=== PATIENT | female | born 1995 ===

== ENCOUNTER 2024-10-27 14:30 | Outpatient (AMB) | payer OTHER, SELFPAY ==
--- NOTE | 2024-10-27 14:33 | MHC.PC.OV ---
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 bad hair lost. 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: No Accompanied by: Self / Same As Patient Allergies No Known Allergies Allergy (Verified 10/27/24 14:33) Tobacco use date assessed: 10/27/24 Dental Screening Dental Screen Date: 10/27/24 Did you have a dental visit in the last 12 months?: Yes Did you have a dental problem in the last 6 months where you did not have access to dental care?: No Was dental information given to patient?: Patient has dentist HPI HPI Comments History of Present Illness Details History of Present Illness The patient is a 28-year-old female presenting with a wellness check-up and concerns regarding right ankle stiffness and pain, hair loss, and menstrual pain. Right ankle stiffness and pain: - Reports stiffness and pain in the right ankle, particularly in the morning, with a pain level of 3-4 out of 10. - Symptoms began approximately one month ago, with no history of trauma or injury to the ankle. - Had ACL reconstruction on the right knee a year ago, but the knee is not currently symptomatic. - Engages in rock climbing, lifting, and mobility exercises regularly. Hair loss: - Reports significant hair loss over the past year, with no prior blood work conducted in six years. - Suspects a possible vitamin deficiency due to limited red meat intake, relying on spinach for iron. Menstrual pain and suspected ovarian cysts: - Experiences severe menstrual pain, including pelvic pain and dyspareunia, with symptoms varying in location and timing. - Suspects ovarian cysts but has not pursued evaluation due to the intermittent nature of symptoms. Health Maintenance - Referral for gynecological evaluation and Pap smear - Blood tests including CBC, kidney and liver function, electrolytes, hemoglobin A1c, thyroid function, vitamin D, hepatitis B and C, HIV, and STI screening Review of Systems - Musculoskeletal: Reports right ankle stiffness and pain, denies other joint pain - Dermatological: Reports significant hair loss over the past year - Reproductive: Reports severe menstrual pain and dyspareunia, denies heavy bleeding outside of menstruation 10-point ROS reviewed and negative except as noted in HPI Medication History - Ibuprofen 600 mg as needed for pain, not previously used by the patient Past Surgical History - ACL reconstruction on the right knee one year ago Family History - Denies family history of arthritis or cancer Social History - 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 We also talked about the importance of a gynecological evaluation and Pap smear, given her age and lack of previous screenings. I recommended a series of blood tests to assess for potential deficiencies or underlying conditions contributing to her hair loss and menstrual pain. We agreed on a follow-up in two weeks to review the results and adjust the management plan as needed. Plan 1. Right Ankle Stiffness And Pain - Referral to physical therapy and prescription of ibuprofen 600 mg as needed for pain management. 2. Hair Loss - Comprehensive blood work to assess for vitamin and mineral deficiencies, focusing on iron levels due to dietary habits. 3. Menstrual Pain And Suspected Ovarian Cysts - Keeping a symptom diary to track pain in relation to menstrual cycle and ovulation, and use of ibuprofen for pain management. Patient Instructions - Follow up with physical therapy for ankle stiffness and pain. - Take ibuprofen 600 mg as needed for pain, with food. - Keep a diary of menstrual and pelvic pain, noting timing and severity. - Complete blood tests as ordered and follow up in two weeks for results. [facility] Family History (Updated 10/27/24 @ 14:39 by Jenny Harmon MA) Father No problems noted. Mother High blood pressure Social History (Updated 10/27/24 @ 14:40 by Jenny Harmon MA) Housing: Apartment Alcohol intake: current Alcohol intake frequency: holidays/special occasions only Patient Tobacco Use Status: Never used Tobacco service: No Current occupational status: employed Cognitive needs: No Hearing needs: No Vision needs: No Questionnaire PHQ-9 Over the last 2 weeks, how often have you been bothered by any of the following problems? 1. Little interest or pleasure in doing things: several days 2. Feeling down, depressed, or hopeless: several days 3. Trouble falling or staying asleep, or sleeping too much: not at all 4. Feeling tired or having little energy: more than half the days 5. Poor appetite or overeating: not at all 6. Feeling bad about yourself - or that you are a failure or have let yourself or your family down: not at all 7. Trouble concentrating on things, such as reading the newspaper or watching television: several days 8. Moving or speaking so slowly that other people could have noticed. Or the opposite - being so fidgety or restless that you have been moving around a lot more than usual: not at all 9. Thoughts that you would be better off or of hurting yourself in some way: not at all Total score: 5 Source: Developed by Drs. Titus Cordoba, Neha Doss, Abraham Medrano and colleagues, with an educational tyler from [employer]. Thrive Questionnaire Date Thrive assessed: 10/27/24 I am a: Patient What is your living situation today?: I choose not to answer this question Within the past 12 months, did the food you bought not last and you didn't have the money to get more?: I choose not to answer this question Within the past 12 months, did you worry whether your food would run out before you got money to buy more?: I choose not to answer this question Do you have trouble paying for medicines?: I choose not to answer this question Do you have trouble getting transportation to medical appointments?: I choose not to answer this question Do you have trouble paying your heating and electricity bill?: I choose not to answer this question Do you have trouble taking care of your child, family member or friend?: I choose not to answer this question Do you have trouble with day-to-day activities such as bathing, preparing meals, shopping, managing finances, etc.?: I choose not to answer this question Are you currently unemployed and looking for a job?: I choose not to answer this question Are you interested in more education?: I choose not to answer this question Please select the resources that you would like help with: None Currently or been in a relationship where the following occur: No concerns reported THRIVE Score: 0 AUDIT C Alcohol Use Questionnaire (AUDIT-C) 1. How often do you have a drink containing alcohol?: Monthly or less 2. How many drinks containing alcohol do you have on a typical day when you are drinking?: 1 or 2 3. How often do you have six or more drinks on one occasion?: Never Total Score: 1 CEDRIC-7 AMB Questionnaire CEDRIC-7 Date CEDRIC - 7 assessed: 10/27/24 Feeling nervous, anxious, or on edge: 0 = Not at all Not being able to stop or control worryin = Not at all Worrying too much about different things: 0 = Not at all Trouble relaxin = Several days Being so restless that it is hard to sit still: 0 = Not at all Becoming easily annoyed or irritable: 0 = Not at all Feeling afraid as if something awful might happen: 0 = Not at all Total CEDRIC-7 score (0-4 normal; 5-9 mild; 10-14 moderate; 15-21 severe): 1 Source: Developed by Drs. Titus Cordoba, Neha Doss, Abraham Medrano and colleagues, with an educational tyler from [employer]. Physical exam (Primary Care) Vital Signs: Last Vital Signs Temp 98.1 F 10/27/24 14:41 Pulse 72 10/27/24 14:41 Resp 16 10/27/24 14:41 BP 120/70 10/27/24 14:41 Pulse Ox 99 10/27/24 14:41 Oxygen Delivery Method Room Air 10/27/24 14:41 BMI result Body Mass Index 26.7 Tobacco/Smoking Status: Tobacco use Status Tobacco use date assessed 10/27/24 10/27/24 14:46 Patient Tobacco Use Status Never used Tobacco 10/27/24 14:46 PHQ-9: PHQ-9 Score PHQ-9: Total score 5 10/27/24 14:35 Thrive Assessment: Date of Thrive Assessment Date Thrive assessed 10/27/24 10/27/24 14:46 Currently or been in a relationship where the following occur: No concerns reported Coding Level of Care Code New Pt Level 3 (41927) Diagnoses Establishing care with new doctor, encounter for Z76.89 Encounter for screening, unspecified Z13.9 Acute right ankle pain M25.571 Chronicity: acute Laterality: right Hair loss L65.9 Menstrual pain N94.6 Counseling, unspecified Z71.9 Routine screening for STI (sexually transmitted infection) Z11.3 Screening for HIV (human immunodeficiency virus) Z11.4 Screening for depression Z13.31 Screening for diabetes mellitus Z13.1 Screening for lipoid disorders Z13.220 Assessment & Plan Assessment & Plan (1) Establishing care with new doctor, encounter for: Code(s): Z76.89 - Persons encountering health services in other specified circumstances (2) Encounter for screening, unspecified: Code(s): Z13.9 - Encounter for screening, unspecified (3) Ankle pain: Code(s): M25.579 - Pain in unspecified ankle and joints of unspecified foot Qualifiers: Chronicity: acute Laterality: right Qualified Code(s): M25.571 - Pain in right ankle and joints of right foot (4) Hair loss: Code(s): L65.9 - Nonscarring hair loss, unspecified (5) Menstrual pain: Code(s): N94.6 - Dysmenorrhea, unspecified (6) Counseling, unspecified: Code(s): Z71.9 - Counseling, unspecified (7) Routine screening for STI (sexually transmitted infection): Code(s): Z11.3 - Encounter for screening for infections with a predominantly sexual mode of transmission (8) Screening for HIV (human immunodeficiency virus): Code(s): Z11.4 - Encounter for screening for human immunodeficiency virus [HIV] (9) Screening for depression: Code(s): Z13.31 - Encounter for screening for depression (10) Screening for diabetes mellitus: Code(s): Z13.1 - Encounter for screening for diabetes mellitus (11) Screening for lipoid disorders: Code(s): Z13.220 - Encounter for screening for lipoid disorders Plan Orders: Orders Chlamydia Species Ab Panel Today Z13.9 - Encounter for screening, unspecified, Z76.89 - Persons encountering health services in other specified circumstances Hepatitis B Surface Antigen Today Z13.9 - Encounter for screening, unspecified, Z76.89 - Persons encountering health services in other specified circumstances Hepatitis C Antibody Today Z13.9 - Encounter for screening, unspecified, Z76.89 - Persons encountering health services in other specified circumstances Lipid Panel Today Z13.9 - Encounter for screening, unspecified, Z76.89 - Persons encountering health services in other specified circumstances Magnesium Today Z13.9 - Encounter for screening, unspecified, Z76.89 - Persons encountering health services in other specified circumstances Vitamin D 1,25 dihydroxy Today Z13.9 - Encounter for screening, unspecified, Z76.89 - Persons encountering health services in other specified circumstances Ferritin Today D50.9 - Iron deficiency anemia, unspecified, Z13.9 - Encounter for screening, unspecified, Z76.89 - Persons encountering health services in other specified circumstances IRON PROFILE Today D50.9 - Iron deficiency anemia, unspecified, Z13.9 - Encounter for screening, unspecified, Z76.89 - Persons encountering health services in other specified circumstances PT Evaluation and Treatment Today M25.571 - Pain in right ankle and joints of right foot, M25.579 - Pain in unspecified ankle and joints of unspecified foot Complete Blood Count Auto Diff Today Z13.9 - Encounter for screening, unspecified, Z76.89 - Persons encountering health services in other specified circumstances Comprehensive Met. Panel Today Z13.9 - Encounter for screening, unspecified, Z76.89 - Persons encountering health services in other specified circumstances CT NG by PCR Urine Today Z13.9 - Encounter for screening, unspecified, Z76.89 - Persons encountering health services in other specified circumstances Hemoglobin A1c Today Z13.9 - Encounter for screening, unspecified, Z76.89 - Persons encountering health services in other specified circumstances Hepatitis B Surface Antibody Today Z13.9 - Encounter for screening, unspecified, Z76.89 - Persons encountering health services in other specified circumstances HIV Ab/Ag Today Z13.9 - Encounter for screening, unspecified, Z76.89 - Persons encountering health services in other specified circumstances Syphilis Screen Today Z13.9 - Encounter for screening, unspecified, Z76.89 - Persons encountering health services in other specified circumstances TSH reflex Free T4 Today Z13.9 - Encounter for screening, unspecified, Z76.89 - Persons encountering health services in other specified circumstances UA CC w/rflx Micro + Cult Today Z13.9 - Encounter for screening, unspecified, Z76.89 - Persons encountering health services in other specified circumstances Vitamin B12 and Folate Today Z13.9 - Encounter for screening, unspecified, Z76.89 - Persons encountering health services in other specified circumstances Zinc Today Z13.9 - Encounter for screening, unspecified, Z76.89 - Persons encountering health services in other specified circumstances Transferrin Today D50.9 - Iron deficiency anemia, unspecified, Z13.9 - Encounter for screening, unspecified, Z76.89 - Persons encountering health services in other specified circumstances Medications: New ibuprofen 600 mg PO Q8H PRN 30 tabs 0RF pain
[2024-10-27 14:41] VITALS: BP 120/70; PULSE 72; RESP 16; TEMP 36.7; O2SAT 99; BMI 26.7
--- OUTSIDE RECORDS SUMMARY | 2024-10-27 18:15 | XMS_ITS | Clinical Summary ---
Author Organization [employer] Address [address] [place] [address] Care Team Providers Care Associate Agent Insurance Sales Name Role Phone Unavailable Primary Care Provider Unavailabl e Encounters Date Type Department Care Team Description 09/01/2024 Population Health Risk Score [facility] (C3) Department [address] [address] Provider, Population Health Generic from Last 3 Months Social History Tobacco Use Types Packs/Day Years Used Date Smoking Tobacco: Never Assessed Comments Unknown Sex and Gender Information Value Date Recorded Sex Assigned at Not on file Legal Sex Female 9:28 PM EDT Gender Identity Not on file Sexual Orientation Not on file Plan of Treatment Health Maintenance Due Date Last Done Comments Depression Screening 1996 HIV Screening 1996 SDOH Screening 1996 Disability Screening 1996 Alcohol/Substance Use Screening 2008 Tobacco Screening 2008 Family Planning (PISQ) 12/18/2011 HPV Vaccines (1 - 3-dose series) 12/18/2011 Hepatitis C Screening 2014 DTaP/Tdap/Td Vaccines (1 - Tdap) 12/18/2015 Hepatitis B Vaccines (1 of 3 - 19+ 3-dose series) 12/18/2015 Pap Smear 2017 COVID-19 Vaccine (1 - 2023-2 5 season) 2024 Influenza Vaccine (#1) 2024 Zoster Vaccines (1 of 2) 2046 RSV Patients and Pa tients Aged 60 years or older (1 - 1-dose 75+ series) 12/18/2071 HIB Vaccines Aged Out No longer eligi ble based on patient's age to complete this topic Hepatitis A Vaccines Aged Out No long er eligible based on patient's age to complete this topic IPV Vaccines Aged Out No longer eligi ble based on patient's age to complete this topic Meningococcal B Vaccine Aged Out No l onger eligible based on patient's age to complete this topic Meningococcal Vaccine Aged Out No mitch renu eligible based on patient's age to complete this topic Pneumococcal Vaccine: Pediat rics (0 to 5 Years) and At-Risk Patients (6 to 49) Years Aged Out No longer eligible b ased on patient's age to complete this topic RSV under 20 months Aged Out No longe r eligible based on patient's age to complete this topic Rotavirus Vaccines Aged Out No longer eligible based on patient's age to complete this topic
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
== END 2024-10-27 15:22 | disposition home or self-care (01) ==
LOC: HO.HMCFMS 14:31
PROVIDERS: PCP Student in an Organized Health Care Education/Training Program; Visit Provider Student in an Organized Health Care Education/Training Program
DX: M25.571 Pain in right ankle and joints of right foot (principal); L65.9 Nonscarring hair loss, unspecified; N94.6 Dysmenorrhea, unspecified; Z71.9 Counseling, unspecified; Z11.3 Encounter for screening for infections with a predominantly sexual mode of transmission; Z11.4 Encounter for screening for human immunodeficiency virus [HIV]; Z13.31 Encounter for screening for depression; Z13.1 Encounter for screening for diabetes mellitus; Z13.220 Encounter for screening for lipoid disorders

== ENCOUNTER → 2024-10-27 14:30 | Outpatient (BNVA) | payer OTHER, SELFPAY | PROVIDERS: PCP Student in an Organized Health Care Education/Training Program; Visit Provider Student in an Organized Health Care Education/Training Program | DX: Z76.89 Persons encountering health services in other specified circumstances (principal); M25.571 Pain in right ankle and joints of right foot; L65.9 Nonscarring hair loss, unspecified; N94.6 Dysmenorrhea, unspecified; Z71.9 Counseling, unspecified; Z13.39 Encounter for screening examination for other mental health and behavioral disorders; Z13.30 Encounter for screening examination for mental health and behavioral disorders, unspecified | CPT/HCPCS: 99202 ==

== ENCOUNTER 2024-11-04 13:08 | Outpatient (REF) | payer OTHER, SELFPAY ==
[2024-11-04 14:51] LABS: Total Hemoglobin (HGBA1C) 3630.7223 umol/L
[2024-11-04 15:09] LABS: Alanine Aminotransferase 33 U/L (0-31); Albumin Level 4.9 g/dL (3.5-5.0); Alkaline Phosphatase 75 U/L (39-117); Anion Gap 11 (12-20); Aspartate Amino Transferase 21 U/L (5-31); Blood Urea Nitrogen 12 mg/dL (9-16); Calcium 9.4 mg/dL (8.4-10.2); Carbon Dioxide 27 mmol/L (22-29); Chloride 107 mmol/L (96-108); Cholesterol 184 mg/dL (<200); Estimated Glomerular Filt Rate > 60; Ferritin 27 ng/mL (10-122); HDL Cholesterol 55 mg/dL (>40); Iron 80 mcg/dL (30-160); Magnesium 2.2 mg/dL (1.6-2.6); Percent Iron Saturation 25 % (15-50); Potassium 3.8 mmol/L (3.3-5.1); Sodium 141 mmol/L (135-145); Total Iron Binding Capacity 318 mcg/dL (228-428); Total Protein 7.9 g/dL (6.5-8.0); Triglycerides 41 mg/dL (<150); Unsaturated Iron Binding 238 ug/dL
[2024-11-04 15:26] LABS: Folate 12.6 ng/mL (> or = 4.0); Vitamin B12 808 pg/mL (200-900)
--- OUTSIDE RECORDS SUMMARY | 2024-11-04 15:32 | XMS_ITS | Clinical Summary ---
Author Organization [facility] Address [address] [place] [address] Care Team Providers Care Public Safety Director Name Role Phone Radha Muhammad [facility] Primary Care Provider [phone] Source Comments PLEASE NOTE, if this patient [...] does not warrant SVE prophylaxis. EKG- 07/16/2012- [place] .16 QTc .42. Possible that anemia can exacerbating factor for murmur. Exercise-induced asthma ([facility]) 04/08/2018 Immunizations Immunization Administration Dates Next Due DTaP-Hep B-IPV (Pediarix) 04/07/2001,11/1998,06/14/1997,04/19,02/22/1997 HEP B, PED/ADOL ([id number]-[id number]/RECOMBIVAX-PEDS) 11/05/1997,01/18/1997,1996 Hib (PRP-T) 06/20/1998, 8,04/19/1997,02/22 IPV (IPOL) [...] Screen 02/12/2024 04/08/2018 Depression Annual Screen 02/12/2024 [id number] ( season) 2024 Imm-Influenza (#1) 2024 Imm-Hepatitis [...] & HIV-2 ANTIBODIES (04/08/2018 4:24 PM EST) [facility] HIV 1 AND 2 ANTIBODY SCREEN NEGATIVE NEGATIVE [facility] [employer] [facility] Comment: This assay is a 4th generation [...] PM EST 04/08/2018 8:10 PM EST Narrative [employer] - 04/08/2018 10:07 PM EST [employer], [place] [address] Project Administrator - Oneyda Osuna MD PT ID [id number] ORD# [id number] Doris Parra PA-C LAB - BLOOD DRAW Final Re sult Performing Organization Address City/State/[facility] Co [place] [address], from Last 3 Months or Most Recently Relevant to Health Maintenance Insurance [employer] Care Teams Public Safety Director Relationship Specialty Start Date End Date Radha Muhammad FNP [facility] [place] [address] PCP - General Family Medicine, PANTRY COOK 10/02/18
--- OUTSIDE RECORDS SUMMARY | 2024-11-04 15:32 | XMS_ITS | Clinical Summary ---
Author Organization [employer] Address [address] [facility] 7t [place] [address] Care Team Providers Care Aircraft Captain Name Role Phone Unavailable Primary Care Provider Unavailabl e Encounters Date Type Department Care Team Description 09/01/2024 Population Health Risk Score [facility] (C3) Department [address] [address] Provider, Population Health Generic from [...]
[2024-11-04 19:27] LABS: MANUAL DIFF FLAG NO
[2024-11-04 19:29] LABS: Hematocrit 42.2 % (37.0-47.0); Hemoglobin 13.8 g/dl (12.0-16.0); Imm Gran Abs Auto 0.01 X10*3/uL (0.00-0.03); Imm Gran Pct Auto 0.2 % (0.0-0.4); Lymphocytes Absolute Auto 1.7 X10*3/uL (1.2-4.9); Mean Corpuscular HGB Conc 32.7 g/dl (31.0-35.0); Mean Corpuscular Hemoglobin 29.6 pg (27.0-33.0); Mean Corpuscular Volume 90.4 fL (80.0-98.0); NRBC Abs Auto 0.000 X10*3/uL (0.0-0.012); NRBC Pct Auto 0.0 /100WBC (0.0-0.2); Platelet Count 368 X10*3/uL (160-400); Red Blood Count 4.67 X10*6/uL (4.20-5.50); White Blood Count 5.2 X10*3/uL (4.8-10.8)
[2024-11-05 03:53] LABS: Syphilis Screen Nonreactive (Nonreactive)
[2024-11-05 04:03] LABS: HBS Num1 1.03 mIU/mL (0-7.99); HBsAGNum1 0.37 S/CO (0.00-0.99); HIV Num 1 0.06 S/CO (0.00-0.99); Hepatitis B Surface Antigen Negative (Negative); ~HepC Num1 0.07 S/CO (0.00-0.79); ~Hepatitis B Surface Antibody NONREACTIVE (Nonreactive); ~Hepatitis C Antibody Nonreactive (Nonreactive)
[2024-11-05 09:17] LABS: Transferrin 291 mg/dL (188-341)
[2024-11-09 17:33] LABS: VITAMIN D (1,25 OH) D3 60 pg/mL; Vit D (1,25-Dihydroxy) Total 60 pg/mL (18-72); Vitamin D (1,25 OH) D2 <8 pg/mL
[2024-11-11 11:23] LABS: Chlamydia Trachomatis IgA <1:16 titer (<1:16)
== END 2024-11-04 13:09 | disposition home or self-care (01) ==
LOC: HO.LAB 13:08
PROVIDERS: PCP Student in an Organized Health Care Education/Training Program; Visit Provider Student in an Organized Health Care Education/Training Program
DX: Z76.89 Persons encountering health services in other specified circumstances (principal); Z11.4 Encounter for screening for human immunodeficiency virus [HIV]; Z11.59 Encounter for screening for other viral diseases; Z01.84 Encounter for antibody response examination; D50.9 Iron deficiency anemia, unspecified
CPT/HCPCS: 36415; 80053; 80061; 82607; 82652; 82728; 82746; 83036; 83540; 83735; 84443; 84466; 84630; 85025; 86631; 86632; 86706; 86780; 86803; 87340; 87389

== ENCOUNTER 2024-11-05 11:06 | Outpatient (REF) | payer OTHER, SELFPAY ==
[2024-11-06 11:46] LABS: Appearance Urine Turbid; Glucose Urine UA Negative (Negative); PH 6.0 (5.0-9.0); Specific Gravity - Urine >= 1.030 (1.005-1.025)
--- OUTSIDE RECORDS SUMMARY | 2024-11-06 12:52 | XMS_ITS | Clinical Summary ---
Author Organization [facility] Address [address] [place] [address] Care Team Providers Care Renewal Specialist Name Role Phone Radha Muhammad [facility] Primary Care Provider [phone] Source Comments PLEASE NOTE, if this patient [...] does not warrant SVE prophylaxis. EKG- 07/16/2012- [place] .16 QTc .42. Possible that anemia can exacerbating factor for murmur. Exercise-induced asthma ([facility]-H[facility]) 04/08/2018 Immunizations Immunization Administration Dates Next Due DTaP-Hep B-IPV (Pediarix) 04/07/2001,11/1998,06/14/1997,04/19,02/22/1997 HEP B, PED/ADOL ([id number]/RECOMBIVAX-PEDS) 11/05/1997,01/18/1997,1996 Hib (PRP-T) 06/20/1998, 8,04/19/1997,02/22 IPV (IPOL) [...] Screen 02/12/2024 04/08/2018 Depression Annual Screen 02/12/2024 [id number] ( season) 2024 Imm-Influenza (#1) 2024 Imm-Hepatitis [...] & HIV-2 ANTIBODIES (04/08/2018 4:24 PM EST) [facility] HIV 1 AND 2 ANTIBODY SCREEN NEGATIVE NEGATIVE [facility] [employer] [facility] Comment: This assay is a 4th [...] PM EST 04/08/2018 8:10 PM EST Narrative [employer] - 04/08/2018 10:07 PM EST [employer], [place] [address] Engineering Faculty - Oneyda Osuna MD PT ID [id number] ORD# [id number] Doris Parra PA-C LAB - BLOOD DRAW Final Re sult Performing Organization Address City/State/[facility] [place] [address], from Last 3 Months or Most Recently Relevant to Health Maintenance Insurance [employer] Care Teams Renewal Specialist Relationship Specialty Start Date End Date Radha Muhammad FNP [facility] [place] [address] PCP - General Family Medicine, NEWS PRODUCTION SUPERVISOR 10/02/18
--- OUTSIDE RECORDS SUMMARY | 2024-11-06 12:52 | XMS_ITS | Clinical Summary ---
Author Organization [email or web address] Address [address] [facility] 7t [place] [address] Care Team Providers Care Mechanical Handyman Name Role Phone Unavailable Primary Care Provider Unavailabl e Encounters Date Type Department Care Team Description 09/01/2024 Population Health Risk Score [facility] (C3) Department [address] [address] Provider, Population Health Generic from [...]
[2024-11-06 13:53] LABS: CT PCR Urine NOT DETECTED (Not Detect.); NG PCR Urine NOT DETECTED (Not Detect.)
== END 2024-11-05 11:07 | disposition home or self-care (01) ==
LOC: HO.LNP 11:06
PROVIDERS: Visit Provider Student in an Organized Health Care Education/Training Program
DX: Z13.9 Encounter for screening, unspecified (principal); Z76.89 Persons encountering health services in other specified circumstances; Z20.2 Contact with and (suspected) exposure to infections with a predominantly sexual mode of transmission
CPT/HCPCS: 81003; 87491; 87591

== ENCOUNTER 2024-11-10 08:27 | Outpatient (REF) | payer OTHER, SELFPAY | END 2024-11-10 08:28 | disposition home or self-care (01) | LOC: HO.LNP 08:27 | PROVIDERS: Visit Provider Student in an Organized Health Care Education/Training Program | DX: Z12.4 Encounter for screening for malignant neoplasm of cervix (principal); Z71.2 Person consulting for explanation of examination or test findings; R74.01 Elevation of levels of liver transaminase levels; E78.5 Hyperlipidemia, unspecified; L65.9 Nonscarring hair loss, unspecified; R10.2 Pelvic and perineal pain; G89.29 Other chronic pain | CPT/HCPCS: 88175; 99212 ==

== ENCOUNTER 2024-11-27 08:59 | Outpatient (AMB) | payer OTHER, SELFPAY ==
--- NOTE | 2024-11-27 09:01 | A.OFFPC_ITS ---
Vital Signs 11/27/24 09:02 Height 5 ft 1.81 in Weight 143 lb 8 oz BMI 26.4 BP 124/85 Blood Pressure Location Lt brachial Position Sitting Respiration 16 Pulse 79 Pulse Source Pulse Oximeter Temp 97.3 F Temp Source Oral Pulse Oximetry (%) 99 Oxygen Delivery Method Room Air Intake Visit Reasons: pap f/u Intake Note: establish care ( physical) had acl surgery has being having some pain on the ankle and foot every morning. bad hair lost. Solution Professional Required: No Accompanied by: Self / Same As Patient Allergies No Known Allergies Allergy (Verified 11/27/24 09:02) Tobacco use date assessed: 11/27/24 Dental Screening Dental Screen Date: 11/27/24 Did you have a dental visit in the last 12 months?: Yes Did you have a dental problem in the last 6 months where you did not have access to dental care?: No Was dental information given to patient?: Patient has dentist HPI HPI Comments History of Present Illness Details Consent Patient was informed and verbally consented to the use of an ambient scribe for clinic note documentation during this visit. History of Present Illness The patient is a 28-year-old female presenting for follow-up on Pap smear results and discussion of low ferritin levels associated with hair loss. Unsatisfactory Pap Smear: The patient had a Pap smear on November 10, 2024, which was deemed unsatisfactory due to insufficient squamous epithelial cells. The patient expressed concern about the delay before the next test but was reassured that this follows guidelines. The patient preferred an earlier repeat within the guideline window for peace of mind. Low Ferritin Level: The patient is experiencing hair loss and suspects it could be related to her low ferritin levels. Recent labs showed ferritin at the lower end of the normal range, The patient wishes to address this as she feels dietary intake might be a contributing factor. Medications: - None were discussed during this visit. Social History: - Reports not consuming much meat due to dislike of cooking it, which may affect iron levels despite no specific dietary restrictions. Diagnostic Results: - Labs: ALT level at 33 U/L (reference c utoff 31 U/L) - Labs: LDL cholesterol at 21 mg/dL (ref erence cutoff 100 mg/dL) - Labs: Ferritin at 27 ng/mL (lower end of normal range) - Tests: Pap smear unsatisfactory due to insufficient squamous epithelial cells Review of Systems - Hematological: Reports hair loss possi milan related to ferritin levels - Reproductive: Reports concerns about P ap smear results 10-point ROS reviewed and negative excep t as noted in HPI Past Medical History Health Maintenance - Cervical cancer screening: Pap smear p erformed, repeat recommended due to unsatisfactory result Physical Exam General: Well-appearing, in no acute distress. Vital signs: Within normal limits. HEENT: Normocephalic, atraumatic. PERRLA, EOMI. Conjunctiva clear, sclera anicteric. Oropharynx clear, mucous membranes moist. TMs intact bilaterally. Neck: Supple, no lymphadenopathy, no thyromegaly, no JVD or carotid bruits. Cardiovascular: RRR, normal S1/S2, no murmurs, rubs, or gallops. Peripheral pulses 2+ and symmetric. No edema. Respiratory: Lungs clear to auscultation bilaterally, no wheezes, rales, or rhonchi. Normal effort. Abdomen: Soft, non-tender, non-distended. Normoactive bowel sounds. No hepa tosplenomegaly, no masses. MSK: Full range of motion, no joint swelling or deformity. Normal gait. Skin: Warm, dry, intact. No rashes, lesions, or pallor. Neuro: Alert and oriented x3. Cranial nerves II-XII intact. Strength 5/5 throughout. Sensation intact. Reflexes 2+ symmetric. Normal coordination and gait. Psych: Appropriate mood and affect. Normal judgment and insight. Plan 1. Mildly Elevated Alanine Aminotransfer ase (Alt) - Monitor ALT levels and assess for pote ntial liver function abnormalities. 2. elevated LDL - LDL 121 elevated at this time discuss lifestyle modifications and referral to registered dietitian 3. Unsatisfactory Pap Smear - Repeat Pap smear in 2 to 4 months as d iscussed, with initial repeat preferred in early January. 4. Low Ferritin Level - Start iron supplements 325 mg daily al gladis with vitamin C for better absorption. Re-evaluate ferritin levels in 3 months. Discussion Notes I discussed with the patient the unsatisfactory result of her recent Pap smear, explaining the need for a repeat test within 2 to 4 months. We decided on early January for the repeat test for the patient's peace of mind. I also addressed the patient's concern about hair loss, associating it with her low ferritin levels. I recommended starting iron supplements to increase ferritin levels, which are suspected to contribute to her symptoms, and advised taking it with vitamin C to enhance absorption. The follow-up on ferritin levels will occur in 3 months. Patient Instructions - Repeat Pap smear in early January to obtain an adequate sample. - Start taking iron 325 mg daily with vi tamin C to improve absorption. - Take iron supplements one hour before or two hours after meals. - Avoid taking iron with caffeine. - Schedule a follow-up appointment in 3 months to reassess ferritin levels. - Contact the office if any concerns or unexpected symptoms arise. Medical Decision Making During today's consultation, I addressed the patient's need to repeat her Pap smear due to unsatisfactory results stemming from a lack of sufficient squamous epithelial cells and explained the importance of this follow-up in line with clinical guidelines. In addition, the patient presented concerns about hair loss which may be correlated with her reported low ferrous levels. Given her dietary habits and the objective lab findings of marginally low ferritin, I determined that iron supplementation could optimize her ferritin to more favorable levels for hair health, with planned monitoring of improvements. The rationale for the recommended follow-up, diagnostic testing, and nutritional guidance was explained to ensure the patient understood the expected outcomes and management goals. Total time spent caring for the patient today was 30 minutes. This includes time spent before the visit reviewing the chart, time spent documenting, and time spent reviewing laboratory results, diagnostic imaging, medications, performing a medically necessary evaluation, counseling on diagnoses, care coordination. [facility] Medical History (Updated 11/10/24 @ 08:59 by Emmanuel Mercado MD) Alopecia Chronic pelvic pain in female Family History Father No problems noted. Mother High blood pressure Social History Housing: Apartment Alcohol intake: current Alcohol intake frequency: holidays/special occasions only Patient Tobacco Use Status: Never used Tobacco service: No Current occupational status: employed Cognitive needs: No Hearing needs: No Vision needs: No Questionnaire Thrive Questionnaire Date Thrive assessed: 10/27/24 I am a: Patient What is your living situation today?: I choose not to answer this question Within the past 12 months, did the food you bought not last and you didn't have the money to get more?: I choose not to answer this question Within the past 12 months, did you worry whether your food would run out before you got money to buy more?: I choose not to answer this question Do you have trouble paying for medicines?: I choose not to answer this question Do you have trouble getting transportation to medical appointments?: I choose not to answer this question Do you have trouble paying your heating and electricity bill?: I choose not to answer this question Do you have trouble taking care of your child, family member or friend?: I choose not to answer this question Do you have trouble with day-to-day activities such as bathing, preparing meals, shopping, managing finances, etc.?: No Are you currently unemployed and looking for a job?: I choose not to answer this question Are you interested in more education?: I choose not to answer this question Please select the resources that you would like help with: None Currently or been in a relationship where the following occur: No concerns reported THRIVE Score: 0 CEDRIC-7 AMB Questionnaire CEDRIC-7 Date CEDRIC - 7 assessed: 10/27/24 Source: Developed by Drs. Titus Cordoba, Neha Doss, Abraham Medrano and colleagues, with an educational tyler from [employer]. Physical exam (Primary Care) Vital Signs: Last Vital Signs Temp 97.3 F 11/27/24 09:02 Pulse 79 11/27/24 09:02 Resp 16 11/27/24 09:02 BP 124/85 11/27/24 09:02 Pulse Ox 99 11/27/24 09:02 Oxygen Delivery Method Room Air 11/27/24 09:02 BMI result Body Mass Index 26.4 Tobacco/Smoking Status: Tobacco use Status Tobacco use date assessed 11/27/24 11/27/24 09:04 Patient Tobacco Use Status Never used Tobacco 11/27/24 09:01 Thrive Assessment: Date of Thrive Assessment Date Thrive assessed 10/27/24 11/27/24 09:01 Currently or been in a relationship where the following occur: No concerns reported Coding Level of Care Code Est Pt Level 4 (17263) Diagnoses Low ferritin R79.0 Elevated LDL cholesterol level E78.00 High alanine aminotransferase (ALT) level R74.01 Unsatisfactory cervical Papanicolaou smear R87.615 Assessment & Plan Assessment & Plan (1) Low ferritin: Code(s): R79.0 - Abnormal level of blood mineral (2) Elevated LDL cholesterol level: Code(s): E78.00 - Pure hypercholesterolemia, unspecified (3) High alanine aminotransferase (ALT) level: Code(s): R74.01 - Elevation of levels of liver transaminase levels (4) Unsatisfactory cervical Papanicolaou smear: Code(s): R87.615 - Unsatisfactory cytologic smear of cervix Plan Medications: New ascorbic acid (vitamin C) 500 mg PO DAILY 90 tabs 0RF ferrous sulfate 325 mg PO DAILY 90 tabs 0RF
[2024-11-27 09:02] VITALS: BP 124/85; PULSE 79; RESP 16; TEMP 36.3; O2SAT 99; BMI 26.4
--- OUTSIDE RECORDS SUMMARY | 2024-11-27 09:42 | XMS_ITS | Clinical Summary ---
Author Organization [facility] Address [address] [place] [address] Care Team Providers Care Ship Wirer Name Role Phone Radha Muhammad [facility] Primary Care Provider [phone] [phone] Source Comments PLEASE NOTE, if this patient [...] does not warrant SVE prophylaxis. EKG- 07/16/2012- [place] .16 QTc .42. Possible that anemia can exacerbating factor for murmur. Exercise-induced asthma 04/08/2018 Immunizations Immunization Administration Dates Next Due DTaP-Hep B-IPV (Pediarix) 04/07/2001,11/1998,06/14/1997,04/19,02/22/1997 HEP B, PED/ADOL ([id number]/RECOMBIVAX-PEDS) 11/05/1997,01/18/1997,1996 Hib (PRP-T) 06/20/1998, 8,04/19/1997,02/22 IPV (IPOL) [...] Done Comments Anxiety Screening 1996 HPV Screening (self-collect) 1996 HPV Screening 1996 Hepatitis C Screening [...] Screen 02/12/2024 04/08/2018 Depression Annual Screen 02/12/2024 [id number] ( - season) 2024 Imm-Influenza (#1) 2024 Imm-Hepatitis B Completed 04/07/2001, 06/11, 11/05/1997, Additional history exists HIV Screening Completed 04/08/2018 Cervical Ablation/Cold-Knife Conization Discontinued Cervical Cryotherapy Discontinued Colposcopy Discontinued Excision/Leep Discontinued HPV Genotyping Discontinued Vaginal Pap Discontinued Vulvoscopy Discontinued Procedures Procedure Name Priority Date/Time Associated Diagnosis Comments ANTIBODY HIV-1&HIV-2 SINGLE RESULT Routine 04/08/2018 4:24 PM EST Routine general medical examination at a health care facility from Last 3 Months or Most Recently Relevant to Health Maintenance Results * HIV-1 & HIV-2 ANTIBODIES (04/08/2018 4:24 PM EST) HIV 1 AND 2 ANTIBODY SCREEN NEGATIVE NEGATIVE [facility] [employer] [facility] Comment: This assay is a 4th [...] PM EST 04/08/2018 8:10 PM EST Narrative [employer] - 04/08/2018 10:07 PM EST [employer], [place] [address] Networker - Oneyda Osuna MD PT ID [id number] ORD# [id number] Doris Parra PA-C LAB - BLOOD DRAW Final Re sult [facility] [place] [address], from Last 3 Months or Most Recently Relevant to Health Maintenance Insurance [employer] Care Teams Ship Wirer Relationship Specialty Start Date End Date Radha Muhammad FNP [facility] [place] [id number] PCP - General Family Medicine, PRESCRIPTION EYEGLASS MAKER 10/02/18
--- OUTSIDE RECORDS SUMMARY | 2024-11-27 09:42 | XMS_ITS | Clinical Summary ---
Author Organization [employer] Address [address] [facility] 7t [place] [address] Care Team Providers Care Head Waiter Name Role Phone Unavailable Primary Care Provider Unavailabl e Encounters Date Type Department Care Team Description 09/01/2024 Population Health Risk Score [facility] (C3) Department [address] [address] Provider, Population Health Generic from [...]
== END 2024-11-27 09:20 | disposition home or self-care (01) ==
LOC: HO.HMCFMS 09:00
PROVIDERS: PCP Student in an Organized Health Care Education/Training Program; Visit Provider Student in an Organized Health Care Education/Training Program
DX: R79.0 Abnormal level of blood mineral (principal); E78.00 Pure hypercholesterolemia, unspecified; R74.01 Elevation of levels of liver transaminase levels; R87.615 Unsatisfactory cytologic smear of cervix

== ENCOUNTER → 2024-11-27 08:59 | Outpatient (BNVA) | payer OTHER, SELFPAY | PROVIDERS: PCP Student in an Organized Health Care Education/Training Program; Visit Provider Student in an Organized Health Care Education/Training Program | DX: R79.0 Abnormal level of blood mineral (principal); R74.01 Elevation of levels of liver transaminase levels; R87.615 Unsatisfactory cytologic smear of cervix; E78.00 Pure hypercholesterolemia, unspecified | CPT/HCPCS: 99212 ==